=== PATIENT | female | born 1930 | race Caucasian/White ===

== ENCOUNTER → 2016-12-02 | Outpatient (CLI) | payer BC | LOC: CIMAGING 09:42 | PROVIDERS: ATTEND Family Medicine | DX: S22.080A Wedge compression fracture of T11-T12 vertebra, initial encounter for closed fracture (principal); M51.36 Other intervertebral disc degeneration, lumbar region | CPT/HCPCS: 72100-PO ==

== ENCOUNTER 2017-02-09 15:53 | Emergency (ER) | payer BC ==
[2017-02-09 16:09] VITALS: BP 141/87; PULSE 94; RESP 18; TEMP 97.9; O2SAT 95
--- NOTE | 2017-02-09 16:12 | EDPHY ---
H & P Time Seen by Provider: 02/09/17 16:01 HPI/ROS: HPI Fall, head injury. 86-year-old female by private vehicle with a care provider. She was getting physical therapy. She left the building where she was doing this and was waiting for her ride to pick her up when she tripped on a curb and fell on to her right side and buttock area striking the back of her head on the concrete ground. She is on Eliquis for atrial fibrillation. She denies loss of consciousness. She has not had any vomiting. She has not been confused according to the care provider. She denies any significant extremity pain. No neck pain. No other complaints. ROS: Constitutional: No fever, no chills. No weakness. Eyes: No discharge. No changes in vision. ENT: No sore throat. No nasal congestion or rhinorrhea. Respiratory: No cough. No shortness of breath. Cardiac: No chest pain, no palpitations. Gastrointestinal: No abdominal pain, no vomiting, no diarrhea. Genitourinary: No hematuria. No dysuria or increased frequency with urination. Musculoskeletal: No back pain. No neck pain. No significant extremity. Skin: No rashes. Neurological: No headache. No focal weakness or altered sensation. Past medical history: Osteoporosis, arthritis, atrial fibrillation. Social history: Lives at an assisted living facility by herself. Nonsmoker. No alcohol. Physical Exam: General Appearance: Alert, no distress. This patient is responding to questions appropriately and in full sentences. This patient appears well- hydrated and well-nourished. Head: Normocephalic atraumatic except for a subtle posterior parietal upper occipital scalp hematoma. No bony step-off or crepitus noted on palpation of this area. Face: Facial bones are stable on palpation. Eyes: Pupils equal and round and reactive to light, no pallor or injection. No lid erythema or edema. ENT, Mouth: Mucous membranes moist. Dentition is intact. No malocclusion of the jaw. No tongue lacerations or abrasions. Pharynx is clear. The bilateral nasal canals are clear. No septal hematoma. Respiratory: There are no retractions, lungs are clear to auscultation with good air movement bilaterally. Chest wall is stable to AP and lateral palpation. Cardiovascular: Regular rate and rhythm. No murmur. Gastrointestinal: Abdomen is soft and nontender, no masses, bowel sounds normal. Neurological: Motor sensory function is intact. Cranial nerves are normal. Cerebellar function intact. Skin: Warm and dry, no rashes. No lacerations, abrasions or contusions. Musculoskeletal: Neck is supple and nontender. The trachea is midline. No midline cervical, thoracic, lumbar or sacral tenderness on palpation. No flank tenderness on palpation. Extremities are symmetrical, full range of motion. All joints in the bilateral upper and bilateral lower extremities range without pain or impingement. No tenderness on palpation of the long bones in the bilateral upper and bilateral lower extremities. Psychiatric: No agitation. No depression. Database: EKG: Imaging: CT head without contrast: Negative. Age-related changes only. Results were discussed with staff radiologist. Procedures: Emergency department course: Her vital signs were reviewed. The patient is concerned because she is on Eliquis about a possible head injury. She was sent for CT imaging of her brain. 4:35 p.m., patient re-evaluated. Resting comfortably at this time. Repeat neurologic Assessment is nonfocal. She denies headache. Her mental status is at baseline according to care provider. She is responding to questions appropriately and in full sentences. Results of her CAT scan were discussed with her. She feels comfortable going home and I feel she is safe for discharge. Follow-up was discussed with her. Head injury precautions and return to emergency department precautions reviewed with her. All of her questions were answered. She was discharged in good condition. Differential Diagnosis: The differential diagnosis on this patient includes but is not limited to mechanical fall, minor head injury. Traumatic brain injury, skull fracture, extremity fracture, cervical spine fracture, other significant traumatic injury unlikely. This represents a partial list of diagnoses considered. These considerations are based on history, physical exam, past history, reassessment and diagnostic testing. Smoking Status: Never smoked Constitutional: Initial Vital Signs Temperature (C) 36.6 C 02/09/17 16:07 Heart Rate 94 02/09/17 16:07 Respiratory Rate 18 02/09/17 16:07 Blood Pressure 141/87 H 02/09/17 16:07 O2 Sat (%) 95 02/09/17 16:07 O2 Delivery Mode Room Air Allergies/Adverse Reactions: No Known Allergies Allergy (Unverified 02/09/17 16:06) Home Medications: Medication Instructions Recorded Eliquis 02/09/17 Levothyroxine 02/09/17 Metoprolol Succinate 02/09/17 Medical Decision Making - Diagnostics Imaging Results: Imaging Impressions Head CT 02/09/17 16:08 Impression: 1. Mild atrophy. 2. No acute hemorrhage, hydrocephalus, or mass effect. 3. Cerebrovascular atherosclerosis. 4. No definite acute infarct. 5. Mild microvascular ischemic gliosis. 6. Right parietal scalp soft tissue swelling. 7. No epidural or subdural hematoma. Findings and recommendations discussed with Emergency Department physician, Uri Zurita MD at 16:36 hour, 02/09/2017. Final report concurs with initial preliminary interpretation. Departure - Departure Disposition: Home, Routine, Self-Care Clinical Impression: Head injury, Accident due to mechanical fall without injury Condition: Good Instructions: Head Injury (ED) Additional Instructions: Read and follow provided instructions. Follow-up with your primary care physician tomorrow for re-evaluation as needed Continue taking your medication as prescribed. Most important, return to the emergency department for worsening headache, nausea and vomiting, confusion or other serious concerns. Referrals: Savanna Pretty MD [Primary Care Provider] - As per Instructions
== END 2017-02-09 16:40 | disposition home or self-care (01) ==
LOC: CED 15:53
DX: S09.90XA Unspecified injury of head, initial encounter (principal); W01.198A Fall on same level from slipping, tripping and stumbling with subsequent striking against other object, initial encounter; Z79.01 Long term (current) use of anticoagulants
CPT/HCPCS: 70450-PO